=== PATIENT | male | born 1960 | race Asian ===

== ENCOUNTER → 2016-04-13 | Outpatient (CLI) | payer MEDICAID ==
--- NOTE | 2016-04-13 09:34 | US ---
Right Upper Quadrant Abdominal Sonogram History: Chronic hepatitis B, D 18.1 Findings: The liver is normal in size measuring 13.5 cm. Hepatic echogenicity is either diffusely hyp oechoic consistent with active hepatitis or the patient has a echogenic right kidney consistent with medical renal disease. The anterior liver capsule is smooth. There is no hepatic nodule or mass. Ther e is no intra or extrahepatic biliary dilatation. There is no ascites. The gallbladder is normal. The re is no wall thickening, pericholecystic fluid or stone formation. The pancreas is normal. Incidenta lly noted is a right lower pole 12 mm cyst. There is no right renal obstruction, nephrolithiasis or p erinephric fluid. Impression: 1. Hypoechoic liver versus hyperechoic kidney. Suspect the latter. Recommend checking the patient's renal function. No liver nodule or mass. 2. No evidence for cirrhosis.
== END ==
LOC: CIMAGING 08:37
PROVIDERS: ATTEND Internal Medicine
DX: R93.2 Abnormal findings on diagnostic imaging of liver and biliary tract (principal); B18.1 Chronic viral hepatitis B without delta-agent
CPT/HCPCS: 76705-PO